=== PATIENT | female | born 1980 | race Caucasian/White ===

== ENCOUNTER 2017-04-20 11:39 | Emergency (ER) | payer OTHER ==
[2017-04-20 11:45] VITALS: TEMP 98.4; BMI 37.3
[2017-04-20 12:31] LABS: URINE APPEARANCE SLCLOUDY; URINE BILIRUBIN NEGATIVE (NEGATIVE); URINE COLOR YELLOW; URINE GLUCOSE (UA) NEGATIVE (NEGATIVE); URINE KETONE NEGATIVE (NEGATIVE); URINE LEUK ESTERASE NEGATIVE (NEGATIVE); URINE NITRITE NEGATIVE (NEGATIVE); URINE PROTEIN NEGATIVE (NEGATIVE); URINE UROBILINOGEN NEGATIVE E.U./dl (0.2-1.0)
[2017-04-20 12:39] LABS: URINE BLOOD 3+ (NEGATIVE)
[2017-04-20 12:40] LABS: URINE MUCUS MODERATE; URINE RBC 4 /hpf (0-3)
--- NOTE | 2017-04-20 12:41 | PDOC ---
History of Present Illness - General History Source: Patient, Family Exam Limitations: No Limitations - History of Present Illness Initial Comments: 04/20/17 13:19 The patient is a 36 year old female who is currently 16 weeks , with no significant past medical history, who presents to the emergency department with vaginal bleeding onset today. She states that the vaginal bleeding is in small amounts, which she first noticed in her underwear today. She notes that this is an IVF . She states that 4 weeks ago she had an ultrasound done at the IVF clinic which was normal. The patient denies chest pain, shortness of breath, headache and dizziness. Denies fever, chills, nausea, vomit, diarrhea and constipation. Denies dysuria, frequency and urgency Allergies: None Past surgical history: Cholecystectomy Social history: No alcohol, tobacco or drug use reported <Darren Diana - Last Filed: 04/20/17 13:18> - General History Source: Patient Exam Limitations: No Limitations <Ward Christian - Last Filed: 04/20/17 15:26> - General Chief Complaint: Vaginal Bleeding Stated Complaint: BLEEDING (16 WKS ) Time Seen by Provider: 04/20/17 11:54 Past History <Darren Diana - Last Filed: 04/20/17 13:18> - Surgical History Cholecystectomy: Yes - Psycho/Social/Smoking Cessation Hx Anxiety: No Suicidal Ideation: No Smoking Status: No Smoking History: Never smoked Number of Cigarettes Smoked Daily: 0 Information on smoking cessation initiated: No <Ward Christian - Last Filed: 04/20/17 15:26> - Past Medical History Allergies/Adverse Reactions: Allergies Allergy/AdvReac Type Severity Reaction Status Date / Time No Known Allergies Allergy Verified 04/20/17 11:44 Review of Systems - Review of Systems Able to Perform ROS?: Yes Comments:: 04/20/17 13:18 GENERAL/CONSTITUTIONAL: No fever or chills. No weakness. HEAD, EYES, EARS, NOSE AND THROAT: No change in vision. No ear pain or discharge. No sore throat. CARDIOVASCULAR: No chest pain or shortness of breath RESPIRATORY: No cough, wheezing, or hemoptysis. GASTROINTESTINAL: No nausea, vomiting, diarrhea or constipation. GENITOURINARY: (+) Vaginal bleeding. No dysuria, frequency, or change in urination. MUSCULOSKELETAL: No joint or muscle swelling or pain. No neck or back pain. SKIN: No rash NEUROLOGIC: No headache, vertigo, loss of consciousness, or change in strength/ sensation. ENDOCRINE: No increased thirst. No abnormal weight change HEMATOLOGIC/LYMPHATIC: No anemia, easy bleeding, or history of blood clots. ALLERGIC/IMMUNOLOGIC: No hives or skin allergy. <Darren Diana - Last Filed: 04/20/17 13:18> *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 - Vital Signs Last Vital Signs Temp Pulse Resp BP Pulse Ox 98.4 F 110 H 18 145/85 98 04/20/17 11:41 04/20/17 11:41 04/20/17 11:41 04/20/17 11:41 04/20/17 11:41 - 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 Comments: 04/20/17 13:19 GENERAL: Awake, alert, and fully oriented, in no acute distress HEAD: No signs of trauma, normocephalic, atraumatic EYES: PERRLA, EOMI, sclera anicteric, conjunctiva clear ENT: Auricles normal inspection, hearing grossly normal, nares patent, oropharynx clear without exudates. Moist mucosa NECK: Normal ROM, supple, no lymphadenopathy, JVD, or masses LUNGS: No distress, speaks full sentences, clear to auscultation bilaterally HEART: Regular rate and rhythm, normal S1 and S2, no murmurs, rubs or gallops, peripheral pulses normal and equal bilaterally. ABDOMEN: Soft, nontender, normoactive bowel sounds. No guarding, no rebound. No masses EXTREMITIES: Normal inspection, Normal range of motion, no edema. No clubbing or cyanosis. NEUROLOGICAL: Cranial nerves II through XII grossly intact. Normal speech, normal gait, no focal sensorimotor deficits SKIN: Warm, Dry, normal turgor, no rashes or lesions noted. PELVIC EXAM: (+)Small amount of blood in vault. No CMT or adnexal tenderness. Ox is closed. <Darren Diana - Last Filed: 04/20/17 13:18> - Vital Signs Last Vital Signs Temp Pulse Resp BP Pulse Ox 98.4 F 110 H 18 145/85 98 04/20/17 11:41 04/20/17 11:41 04/20/17 11:41 04/20/17 11:41 04/20/17 11:41 <Ward Christian - Last Filed: 04/20/17 15:26> ED Treatment Course - LABORATORY CBC & Chemistry Diagram: 04/20/17 12:26 04/20/17 12:26 - ADDITIONAL ORDERS Additional order review: Laboratory Results 04/20/17 12:25 Urine Color Yellow Urine Appearance Slcloudy Urine pH 6.0 Urine Protein Negative Urine Glucose (UA) Negative Urine Ketones Negative Urine Blood 3+ H Urine Nitrite Negative Urine Bilirubin Negative Urine Urobilinogen Negative Ur Leukocyte Esterase Negative Urine RBC 4 Urine WBC None Ur Epithelial Cells Moderate Urine Mucus Moderate 04/20/17 12:26 RBC 4.69 MCV 86.3 MCHC 33.0 RDW 14.7 MPV 7.2 L Neutrophils % 75.7 Lymphocytes % 14.3 Monocytes % 7.2 Eosinophils % 1.3 Basophils % 1.5 <Darren Diana - Last Filed: 04/20/17 13:18> - LABORATORY CBC & Chemistry Diagram: 04/20/17 12:26 04/20/17 12:26 <Ward Christian - Last Filed: 04/20/17 15:26> Medical Decision Making - Medical Decision Making 04/20/17 12:41 A portion of this note was documented by scribe services under my direction. I have reviewed the details of the note, within reason, and agree with the documentation with the following case summary and management plan written by me. Patient treated in the ED. Nursing notes are reviewed and incorporated into the medical decision-making. Vital signs reviewed. Peripheral IV access obtained by the nurse, laboratory studies are drawn and sent, reviewed and interpreted by myself. Vital Signs Temp Pulse Resp BP Pulse Ox 98.4 F 110 H 18 145/85 98 04/20/17 11:41 04/20/17 11:41 04/20/17 11:41 04/20/17 11:41 04/20/17 11:41 36-year-old female with no medical history, 004, presents with small amounts of vaginal bleeding today. Patient reports that she had a normal ultrasound performed 4 weeks ago at [place]. The patient states that this is an IVF . Noted this morning, that there are small amounts of blood in her underwear. She also reported some small amounts hematuria. Reports some lower abdominal discomfort but denies any nausea or vomiting. We'll need to evaluate the given the vaginal bleeding to r/o miscarriage.. We'll obtain a pelvic ultrasound, type and screen and labs. We'll give Tylenol, test urinalysis. Reassess. 04/20/17 15:24 Several live intrauterine with estimated gestational age of 14 weeks and 6 days. \ CBC, BMP 04/20/17 12:26 04/20/17 12:26 CMP Sodium 138 mmol/L (136-145) 04/20/17 12:26 Potassium 3.8 mmol/L (3.5-5.1) 04/20/17 12:26 Chloride 103 mmol/L (98-107) 04/20/17 12:26 Carbon Dioxide 21 mmol/L (21-32) 04/20/17 12:26 Anion Gap 14 (8-16) 04/20/17 12:26 BUN 8 mg/dL (7-18) 04/20/17 12:26 Creatinine 0.5 mg/dL (0.55-1.02) L 04/20/17 12:26 Creat Clearance w eGFR > 60 (>60) 04/20/17 12:26 Random Glucose 77 mg/dL (74-106) 04/20/17 12:26 Calcium 8.9 mg/dL (8.5-10.1) 04/20/17 12:26 Total Bilirubin 0.3 mg/dL (0.2-1.0) 04/20/17 12:26 AST 29 U/L (15-37) 04/20/17 12:26 ALT 47 U/L (12-78) 04/20/17 12:26 Alkaline Phosphatase 82 U/L (45-117) 04/20/17 12:26 Total Protein 7.0 g/dl (6.4-8.2) 04/20/17 12:26 Albumin 3.1 g/dl (3.4-5.0) L 04/20/17 12:26 Rh Positive. Patient given instructions regarding pelvic rest. Also for the patient that if the spotting worsens in the bleeding worsens that she needs return to the ED for repeat ultrasound. Patient ready made contact with her operations management trainee and will have follow-up Swapnil. Patient verbalizes understanding agrees with plan. Discharge diagnosis: Vaginal bleeding during I discussed the physical exam findings, ancillary test results and final diagnoses with the patient. I answered all of the patient's questions. The patient was satisfied with the care received and felt comfortable with the discharge plan and treatment plan. The patient will call their primary care physician within 24 hours to arrange follow-up and will return to the Emergency Department with any new, persistant or worsening symptoms. <Ward Christian - Last Filed: 04/20/17 15:26> *DC/Admit/Observation/Transfer - Attestations Scribe Attestion: 04/20/17 13:19 Documentation prepared by Darren Diana, acting as chief medical officer for Ward Christian MD <Darren Diana - Last Filed: 04/20/17 13:18> - Discharge Dispostion Admit: No <Ward Christian - Last Filed: 04/20/17 15:26> Diagnosis at time of Disposition: Vaginal bleeding before 22 weeks gestation - Discharge Dispostion Disposition: HOME Condition at time of disposition: Stable - Patient Instructions Printed Discharge Instructions: DI for Vaginal Bleeding During Additional Instructions: Please call your operations management trainee in follow-up. If you notice worsening vaginal bleeding or blood clots, please return to the ED for repeat ultrasound. Print Language: CROATIAN
[2017-04-20] MEDS ORDERED: ACETAMINOPHEN 325 MG TABLET (FP) PO ONE (12:45)
[2017-04-20 12:48] LABS: BASOPHIL 1.5 % (0-2.0); EOSINOPHIL 1.3 % (0-4.5); MCH 28.5 pg (25.7-33.7); MEAN CELL VOLUME 86.3 fl (80-96); MEAN PLT VOLUME 7.2 fl (7.5-11.1); NEUTROPHILS 75.7 % (42.8-82.8); PLATELET COUNT 269 K/MM3 (134-434); RDW 14.7 % (11.6-15.6); WHITE BLOOD COUNT 14.5 K/mm3 (4.0-10.0)
[2017-04-20] MEDS ORDERED: ACETAMINOPHEN 325 MG TABLET (FP) ONE (13:00)
[2017-04-20 13:14] LABS: ALBUMIN 3.1 g/dl (3.4-5.0); ALK PHOS 82 U/L (45-117); ANION GAP 14 (8-16); BILIRUBIN,TOTAL 0.3 mg/dL (0.2-1.0); CALCIUM 8.9 mg/dL (8.5-10.1); CO2 21 mmol/L (21-32); CREATININE 0.5 mg/dL (0.55-1.02); GLUCOSE,RANDOM 77 mg/dL (74-106); SGOT/AST 29 U/L (15-37); SGPT/ALT 47 U/L (12-78)
[2017-04-20 15:47] VITALS: BP 138/70; PULSE 84
== END 2017-04-20 15:47 | disposition home or self-care (01) ==
LOC: JER 11:39
DX: O46.92 Antepartum hemorrhage, unspecified, second trimester (principal); Z3A.16 16 weeks gestation of pregnancy
CPT/HCPCS: 36415; 76816-TC; 80053; 81003; 81015; 85025; 86850; 86900; 86901; 87086; 99282-25

== ENCOUNTER 2017-10-03 18:20 | Inpatient (IN) | payer OTHER ==
[2017-10-03] MEDS ORDERED: AMPICILLIN - 100 ML IVPB ONE (19:00)
[2017-10-03] MEDS ORDERED: DEXTROSE 5%-LACTATED RINGERS 1,000 ML IV SCH (19:15)
--- NOTE | 2017-10-03 19:24 | HP ---
Past Medical History - Primary Care Physician PCP:: Claudine Trent - Admission Chief Complaint: Active labor AMA CHronic HTN SROM History Source: Patient Limitations to Obtaining History: No Limitations - Past Surgical History Past Surgical History: Yes: None Hx Myomectomy: No Hx Transabdominal Cerclage: No - Smoking History Smoking history: Never smoked Aproximately how many cigarettes per day: 0 Home Medications - Allergies Allergies/Adverse Reactions: Allergies Allergy/AdvReac Type Severity Reaction Status Date / Time No Known Allergies Allergy Verified 09/30/17 22:06 - Home Medications Home Medications: Ambulatory Orders Vit Calc,Iron,Folic [ Vitamins] 1 each PO DAILY 09/01/17 Labetalol HCl 100 mg PO BID 09/30/17 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 - Maternity Constitutional: Yes: Well Nourished, No Distress, Obese Cardiovascular: Yes: WNL Lungs: Clear to auscultation Breast(s): Yes: WNL - Abdominal Exam/OB Fundal Height: 39 Number of Fetuses: Single Presentation: Vertex Contractions: Yes Regularity: Regular Intensity: Moderate Monitor Mode: External Heart Rate (range): 150 Category: I Decelerations: Early - Vaginal Exam/OB Dilatation (cm): FD Amniotic Membrane Status: Ruptured - 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 Musculoskeletal: Yes: WNL Extremities: Yes: WNL Edema: No Hemorrhage Risk Assessment - Risk Factors Risk Score: 0 Risk Level: Low Risk Problem List - Problems (1) Normal vaginal delivery Code(s): O80 - ENCOUNTER FOR FULL-TERM UNCOMPLICATED DELIVERY Assessment/Plan CHronic Hypertension Active labor SROM Plan admit po Labetalol 200 stat anticipate vaginal delivery
[2017-10-03] MEDS ORDERED: LABETALOL HCL 200 MG TABLET (FP) PO ONE (19:30)
[2017-10-03 19:55] VITALS: BMI 41.7
[2017-10-03 20:39] LABS: BASOPHIL 0.4 % (0-2.0); EOSINOPHIL 0.5 % (0-4.5); MCH 26.2 pg (25.7-33.7); MCHC 33.3 g/dl (32.0-36.0); MEAN CELL VOLUME 78.7 fl (80-96); MEAN PLT VOLUME 8.5 fl (7.5-11.1); NEUTROPHILS 79.5 % (42.8-82.8); PLATELET COUNT 236 K/MM3 (134-434); RDW 15.5 % (11.6-15.6); WHITE BLOOD COUNT 14.9 K/mm3 (4.0-10.0)
[2017-10-03] MEDS ORDERED: METHYLERGONOVINE MALEATE 0.2 MG/1 ML AMP IM PRN (20:44)
[2017-10-03] MEDS ORDERED: BENZOCAINE 20% 57 GM BOTTLE TP PRN (20:44)
[2017-10-03] MEDS ORDERED: BISACODYL 10 MG SUPP.RECT PR PRN (20:44)
[2017-10-03] MEDS ORDERED: BENZOCAINE 28 GM HEMORRHOIDAL OINTMENT PR PRN (20:44)
[2017-10-03] MEDS ORDERED: WITCH HAZEL 50% (TUCKS) 40 PAD/JAR PAD TP PRN (20:44)
--- NOTE | 2017-10-03 20:44 | PN ---
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
[2017-10-03 20:50] LABS: INR 0.88 (0.82-1.09); PROTHROMBIN TIME (PATIENT) 9.9 SEC (9.98-11.88)
[2017-10-03 20:53] LABS: ACTIVATED PTT 22.8 SECONDS (26.9-34.4)
[2017-10-03] MEDS ORDERED: OXYTOCIN IV ONE (21:00)
[2017-10-03] MEDS ORDERED: LABETALOL HCL 200 MG TABLET (FP) PO SCH (21:00)
[2017-10-03] MEDS ORDERED: OXYTOCIN 20 UNITS in 0.9% NS 1,000 ML IV SCH (21:00)
[2017-10-03] MEDS ORDERED: NS 0.9% IV ONE (21:00)
[2017-10-03 21:19] LABS: ANION GAP 9 (8-16); CALCIUM 8.3 mg/dL (8.5-10.1); CO2 20 mmol/L (21-32); CREATININE 0.7 mg/dL (0.55-1.02); GLUCOSE,RANDOM 104 mg/dL (74-106)
[2017-10-03] MEDS: IBUPROFEN 600 MG TABLET (FP) PO PRN (21:45)
[2017-10-03] MEDS: ACETAMINOPHEN 325 MG TABLET (FP) PO PRN (21:45)
[2017-10-03] MEDS: LABETALOL HCL 200 MG TABLET (FP) PO SCH (22:00)
[2017-10-03 22:05] LABS: HIV 1 & 2 AB NEGATIVE; HIV 1 AGp24 NEGATIVE
[2017-10-03] MEDS ORDERED: CARBOPROST TROMETHAMINE 250 MCG/ML AMPUL IM ONE (22:30)
[2017-10-04] MEDS: LABETALOL HCL 200 MG TABLET (FP) PO SCH (08:10)
[2017-10-04 08:36] LABS: BASOPHIL 0.2 % (0-2.0); EOSINOPHIL 0.2 % (0-4.5); MCH 25.8 pg (25.7-33.7); MCHC 32.8 g/dl (32.0-36.0); MEAN CELL VOLUME 78.6 fl (80-96); MEAN PLT VOLUME 8.3 fl (7.5-11.1); NEUTROPHILS 82.2 % (42.8-82.8); PLATELET COUNT 215 K/MM3 (134-434); RDW 15.5 % (11.6-15.6); WHITE BLOOD COUNT 20.4 K/mm3 (4.0-10.0)
[2017-10-04] MEDS: ACETAMINOPHEN 325 MG TABLET (FP) PO PRN ×2 (09:03→16:58)
[2017-10-04] MEDS: IBUPROFEN 600 MG TABLET (FP) PO PRN (09:05)
[2017-10-04] MEDS ORDERED: LABETALOL HCL 100 MG TABLET (FP) PO SCH (10:00)
[2017-10-04] MEDS ORDERED: DIPHTH,PERTUSS(ACELL),TET 0.5 ML DISP.SYRIN IM ONE (10:00)
[2017-10-04] MEDS ORDERED: FLU VACC QS2017-18 36MOS UP/PF 60 MCG/0.5 ML SYRINGE IM ONE (10:00)
[2017-10-04 14:01] LABS: URINE APPEARANCE SLCLOUDY; URINE BILIRUBIN NEGATIVE (NEGATIVE); URINE BLOOD 3+ (NEGATIVE); URINE COLOR RED; URINE GLUCOSE (UA) NEGATIVE (NEGATIVE); URINE KETONE NEGATIVE (NEGATIVE); URINE NITRITE NEGATIVE (NEGATIVE); URINE UROBILINOGEN NEGATIVE mg/dL (0.2-1.0)
[2017-10-04 14:04] LABS: ALBUMIN 2.1 g/dl (3.4-5.0); ALK PHOS 189 U/L (45-117); ANION GAP 10 (8-16); BILIRUBIN,TOTAL 0.3 mg/dL (0.2-1.0); CALCIUM 8.2 mg/dL (8.5-10.1); CO2 20 mmol/L (21-32); CREATININE 0.7 mg/dL (0.55-1.02); GLUCOSE,RANDOM 136 mg/dL (74-106); SGOT/AST 19 U/L (15-37); SGPT/ALT 16 U/L (12-78); TOT PROT 5.3 g/dl (6.4-8.2)
[2017-10-04 14:13] LABS: URINE PROTEIN 2+ (NEGATIVE)
[2017-10-04 14:14] LABS: URINE RBC 372 /hpf (0-3); URINE WBC 85 /hpf (3-5)
--- NOTE | 2017-10-04 14:56 | PN ---
Post Note - Post Date of Delivery: 10/03/17 Post Day: 1 Vital Signs: Vital Signs - 24 hr 10/03/17 10/03/17 10/03/17 19:35 19:41 20:05 Temperature 98.2 F 98.4 F Pulse Rate 81 79 81 Respiratory 20 20 20 Rate Blood Pressure 166/113 178/95 166/91 O2 Sat by Pulse Oximetry (%) 10/03/17 10/03/17 10/03/17 20:30 20:55 21:00 Temperature 98.8 F 98.8 F Pulse Rate 89 89 86 Respiratory 18 20 18 Rate Blood Pressure 164/89 148/77 148/77 O2 Sat by Pulse 100 Oximetry (%) 10/03/17 10/03/17 10/03/17 21:10 21:25 21:40 Temperature Pulse Rate 91 H 94 H 100 H Respiratory 18 18 20 Rate Blood Pressure 142/88 154/98 144/84 O2 Sat by Pulse 100 100 100 Oximetry (%) 10/03/17 10/03/17 10/03/17 21:55 22:30 22:45 Temperature Pulse Rate 96 H 98 H 96 H Respiratory 20 18 18 Rate Blood Pressure 139/81 139/79 138/79 O2 Sat by Pulse 100 100 100 Oximetry (%) 10/03/17 10/03/17 10/03/17 23:00 23:15 23:30 Temperature Pulse Rate 90 92 H 93 H Respiratory 20 18 18 Rate Blood Pressure 126/77 131/84 124/86 O2 Sat by Pulse 100 100 100 Oximetry (%) 10/03/17 10/04/17 10/04/17 23:55 03:52 09:43 Temperature 98.4 F 98.5 F 98.8 F Pulse Rate 113 H 91 H 92 H Respiratory 18 18 18 Rate Blood Pressure 135/82 136/72 139/86 O2 Sat by Pulse Oximetry (%) 10/04/17 10/04/17 10:30 13:33 Temperature 98.2 F 98.2 F Pulse Rate 94 H 104 H Respiratory 19 18 Rate Blood Pressure 158/97 137/80 O2 Sat by Pulse Oximetry (%) Labs: Laboratory Results - last 24 hr 10/03/17 10/03/17 10/03/17 20:30 20:30 20:30 WBC 14.9 H D RBC 4.19 Hgb 11.0 Hct 33.0 MCV 78.7 L MCH 26.2 MCHC 33.3 RDW 15.5 Plt Count 236 MPV 8.5 Neutrophils % 79.5 Lymphocytes % 11.0 D Monocytes % 8.6 Eosinophils % 0.5 Basophils % 0.4 PT with INR 9.90 L INR 0.88 PTT (Actin FS) 22.8 L Sodium 137 Potassium 4.0 Chloride 108 H Carbon Dioxide 20 L Anion Gap 9 BUN 14 D Creatinine 0.7 D Creat Clearance w eGFR Random Glucose 104 D Calcium 8.3 L Total Bilirubin AST ALT Alkaline Phosphatase Total Protein Albumin Urine Color Urine Appearance Urine pH Ur Specific Portal Urine Protein Urine Glucose (UA) Urine Ketones Urine Blood Urine Nitrite Urine Bilirubin Urine Urobilinogen Urine RBC Urine WBC Ur Epithelial Cells U Random Total Protein Urine Creatinine HIV 1&2 Antibody Screen HIV P24 Antigen Blood Type Antibody Screen 10/03/17 10/03/17 10/03/17 20:30 20:30 20:30 WBC RBC Hgb Hct MCV MCH MCHC RDW Plt Count MPV Neutrophils % Lymphocytes % Monocytes % Eosinophils % Basophils % PT with INR INR PTT (Actin FS) Sodium Potassium Chloride Carbon Dioxide Anion Gap BUN Creatinine Creat Clearance w eGFR Random Glucose Calcium Total Bilirubin AST ALT Alkaline Phosphatase Total Protein Albumin Urine Color Urine Appearance Urine pH Ur Specific Portal Urine Protein Urine Glucose (UA) Urine Ketones Urine Blood Urine Nitrite Urine Bilirubin Urine Urobilinogen Urine RBC Urine WBC Ur Epithelial Cells U Random Total Protein Urine Creatinine HIV 1&2 Antibody Screen Negative HIV P24 Antigen Negative Blood Type O POSITIVE Cancelled Antibody Screen Negative 10/04/17 10/04/17 10/04/17 07:35 13:00 13:00 WBC 20.4 H D RBC 3.35 L D Hgb 8.6 L D Hct 26.3 L D MCV 78.6 L MCH 25.8 MCHC 32.8 RDW 15.5 Plt Count 215 MPV 8.3 Neutrophils % 82.2 Lymphocytes % 10.1 Monocytes % 7.3 Eosinophils % 0.2 Basophils % 0.2 PT with INR INR PTT (Actin FS) Sodium Potassium Chloride Carbon Dioxide Anion Gap BUN Creatinine Creat Clearance w eGFR Random Glucose Calcium Total Bilirubin AST ALT Alkaline Phosphatase Total Protein Albumin Urine Color Red Urine Appearance Slcloudy Urine pH 6.0 Ur Specific Portal 1.005 Urine Protein 2+ H Urine Glucose (UA) Negative Urine Ketones Negative Urine Blood 3+ H Urine Nitrite Negative Urine Bilirubin Negative Urine Urobilinogen Negative Urine RBC 372 Urine WBC 85 Ur Epithelial Cells Rare U Random Total Protein Urine Creatinine 37.6 HIV 1&2 Antibody Screen HIV P24 Antigen Blood Type Antibody Screen 10/04/17 10/04/17 13:00 13:05 WBC RBC Hgb Hct MCV MCH MCHC RDW Plt Count MPV Neutrophils % Lymphocytes % Monocytes % Eosinophils % Basophils % PT with INR INR PTT (Actin FS) Sodium 137 Potassium 4.2 Chloride 107 Carbon Dioxide 20 L Anion Gap 10 BUN 10 D Creatinine 0.7 Creat Clearance w eGFR > 60 Random Glucose 136 H D Calcium 8.2 L Total Bilirubin 0.3 AST 19 ALT 16 Alkaline Phosphatase 189 H D Total Protein 5.3 L D Albumin 2.1 L D Urine Color Urine Appearance Urine pH Ur Specific Portal Urine Protein Urine Glucose (UA) Urine Ketones Urine Blood Urine Nitrite Urine Bilirubin Urine Urobilinogen Urine RBC Urine WBC Ur Epithelial Cells U Random Total Protein 79 H Urine Creatinine HIV 1&2 Antibody Screen HIV P24 Antigen Blood Type Antibody Screen - Subjective Subjective: No Complaints - Objective Afebrile: Yes Breast: Not engorged Abdomen: Soft, Non-tender Uterus: Fundus firm Vagina: Scant lochia Extremities: Non-tender - Assessment/Plan (1) Normal vaginal delivery Assessment: S/P Normal , Other (CHronic hypertension) Plan: Routine Care, Other (renal consult continue Labetalol 20 tid)
--- NOTE | 2017-10-04 15:00 | DS ---
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-METAL BALER Vital Signs: Vital Signs Temperature 98.2 F 10/04/17 13:33 Pulse Rate 104 H 10/04/17 13:33 Respiratory Rate 18 10/04/17 13:33 Blood Pressure 137/80 10/04/17 13:33 O2 Sat by Pulse Oximetry (%) 100 10/03/17 23:30 Constitutional: Yes: Well Nourished, No Distress ....Post : Yes: Uterus firm, Uterus non-tender Breast(s): Yes: WNL Musculoskeletal: Yes: WNL Extremities: Yes: WNL Labs: CBC, BMP 10/04/17 07:35 10/04/17 13:05 Delivery - Delivery Vaginal Delivery: No Problems Type of Anesthesia: None Episiotomy/Laceration: None EBL (cc): 250 Delivery, Single - Stages of Labor Date 1st Stage Initiatied: 10/03/17 Time 1st Stage Initiated: 18:00 Date 2nd Stage Initiated: 10/03/17 Time 2nd Stage Initiated: 20:25 Date of Delivery: 10/03/17 Time of Delivery: 20:35 Time Placenta Delivered: 20:40 Placenta: Yes: Spontaneous - Condition of Operations Support 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/Forging 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 You may walk unlimited maría elena of and climb stairs. You may resume driving the car when you feel safe and comfortable behind the wheel. No sexual activity as instructed. Wound care If you have a bandage, leave it on, and keep dry for 48-72 hours. After that time discard the outer bandage. If they are tapes on the skin under the out of bandage leave them in place. They will peel off in the next 7 to 10 days. Do Not Peel them off. You may shower the day after surgery. If there are tapes present on the skin, you may shower over them. Diet There are no dietary restrictions. Eat healthy, high-fiber foods. Drink 6 to 8 glasses of liquid each day. This will assist in keeping your bowels are regular. Pain management You may take Tylenol or acetaminophen or Ibuprofen (for example, Motrin, Advil etc.) from my pain prescription medication is ordered should be taken as prescribed for moderate to severe pain. Call MD for any of the following: Severe pain not relieved by medication Fever of 101 or higher Excessive bleeding or drainage on dressing Inability to urinate Call Dr. Trent and make appt. to be seen in one week. Call Dr. Ruiz and christiana appt. to be seen in one week. Referrals: Claudine Trent MD [Staff Physician] - Marcell Ruiz MD [Staff Physician] - Disposition: HOME - Home Medications Comprehensive Discharge Medication List: Ambulatory Orders Vit Calc,Iron,Folic [ Vitamins] 1 each PO DAILY 09/01/17 Labetalol HCl 100 mg PO BID 09/30/17
[2017-10-04] MEDS: LABETALOL HCL 200 MG TABLET (FP) PO PRN (16:58)
--- NOTE | 2017-10-04 17:05 | CON.NEP ---
Consult Consult Specialty:: Nephrology Referred by:: Dr. Musa Reason for Consultation:: Hypertension - History of Present Illness Chief Complaint: High BP s/p pregnacy History of Present Illness: This is a 36 year old woman no significant PMhx who presented in active labor now s/p vaginal delivery with hypertension Pt reports that she was started on Labetalol 100mg BID about 1 month ago when it was noted that her BP was elevated. Pt denies any LIZARRAGA, vision changes, N/V, Abd pain. Pt s/p Vaginal delivery. Pt feels well. BP remains high. Pt gained ~30 lbs during . - History Source History Provided By: Patient Limitations to Obtaining History: No Limitations - Past Surgical History Past Surgical History: Yes: None - Alcohol/Substance Use Hx Alcohol Use: No - Smoking History Smoking history: Never smoked Have you smoked in the past 12 months: No Aproximately how many cigarettes per day: 0 Home Medications - Allergies Allergies/Adverse Reactions: Allergies Allergy/AdvReac Type Severity Reaction Status Date / Time No Known Allergies Allergy Verified 09/30/17 22:06 - Home Medications Home Medications: Ambulatory Orders Vit Calc,Iron,Folic [ Vitamins] 1 each PO DAILY 09/01/17 Labetalol HCl 100 mg PO BID 09/30/17 Family Disease History - Family Disease History Family Disease History: Other: Mother (Hypertension ) Review of Systems - Review of Systems Constitutional: reports: No Symptoms Eyes: reports: No Symptoms HENT: reports: No Symptoms Neck: reports: No Symptoms Cardiovascular: reports: No Symptoms Respiratory: reports: No Symptoms Gastrointestinal: reports: No Symptoms Genitourinary: reports: No Symptoms Musculoskeletal: reports: No Symptoms Integumentary: reports: No Symptoms Neurological: reports: No Symptoms Nephrology Consult - Height Height: 5 ft 2 in - Weight Weight: 228 lb - BMI Body Mass Index (BMI): 41.7 - Lab Results CBC,BMP: CBC, BMP 10/04/17 07:35 10/04/17 13:05 Anion Gap: Anion Gap Anion Gap 10 (8-16) 10/04/17 13:05 - 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ination Vital Signs: Vital Signs Temperature 98.2 F 10/04/17 13:33 Pulse Rate 104 H 10/04/17 13:33 Respiratory Rate 18 10/04/17 13:33 Blood Pressure 137/80 10/04/17 13:33 O2 Sat by Pulse Oximetry (%) 100 10/03/17 23:30 Constitutional: Yes: Well Nourished, No Distress, Calm HENT: Yes: Atraumatic Neck: Yes: Supple Cardiovascular: Yes: Regular Rate and Rhythm Respiratory: Yes: Regular, CTA Bilaterally Gastrointestinal: Yes: Normal Bowel Sounds, Soft, Abdomen, Obese Renal/: No: Anuria Edema: No Problem List - Problems (1) Preeclampsia Code(s): O14.90 - UNSPECIFIED PRE-ECLAMPSIA, UNSPECIFIED TRIMESTER (2) hypertension Code(s): O16.5 - UNSPECIFIED MATERNAL HYPERTENSION, COMP THE PUERPERIUM (3) Normal vaginal delivery Code(s): O80 - ENCOUNTER FOR FULL-TERM UNCOMPLICATED DELIVERY Assessment/Plan 36 year old woman no significant PMhx who presented in active labor now s/p vaginal delivery with hypertension # Hypertension secondary to Preeclampisa Pt developed hypertension during her 3rd trimester and has UPCR ~2 no LFT abnormalities, low plts to signify HELLP syndrome Would recommend PRN Labetalol for SBP > 140 and DNP > 90 Low salt diet Avoidance of NSIADs Adequate pain control Closely monitor BP next 24 hours if BP reasonably controlled can be discharged will determine need for mediation on discharge based on BP trend Thank you Will follow Marcell Ruiz DO
[2017-10-04 19:31] LABS: URINE LEUK ESTERASE 1+ (NEGATIVE)
[2017-10-05] MEDS: LABETALOL HCL 200 MG TABLET (FP) PO PRN (04:52)
--- NOTE | 2017-10-05 06:56 | PN ---
Post Progress Note - Subjective Subjective: Pt seen/evaluated and doing well. Pain controlled. Tolerating regular diet. VB minimal/moderate but decreasing. Ambulating, voiding, passing flatus. Denies LIZARRAGA/RUQ pain or changes/spots in vision. Denies CP/SOB/F/C/LIZARRAGA. Type of Delivery: Vital Signs: Vital Signs Temperature 98.7 F 10/05/17 04:00 Pulse Rate 97 H 10/05/17 04:00 Respiratory Rate 20 10/05/17 04:00 Blood Pressure 143/78 10/05/17 04:00 O2 Sat by Pulse Oximetry (%) 100 10/03/17 23:30 Uterus: Yes: Fundus Firm Abdomen/GI: Yes: Abdomen soft, Tolerating PO. No: Tender, Passing flatus Lochia: Yes: Rubra Lochia, amount: Small Extremities: Yes: Calves non-tender, Edema (trace b/l Edema in UE and LE b/l) Perineum: Yes: Intact Activity: Ambulating - Labs Labs: CBC WBC 20.4 K/mm3 (4.0-10.0) H D 10/04/17 07:35 RBC 3.35 M/mm3 (3.60-5.2) L D 10/04/17 07:35 Hgb 8.6 GM/dL (10.7-15.3) L D 10/04/17 07:35 Hct 26.3 % (32.4-45.2) L D 10/04/17 07:35 MCV 78.6 fl (80-96) L 10/04/17 07:35 MCH 25.8 pg (25.7-33.7) 10/04/17 07:35 MCHC 32.8 g/dl (32.0-36.0) 10/04/17 07:35 RDW 15.5 % (11.6-15.6) 10/04/17 07:35 Plt Count 215 K/MM3 (134-434) 10/04/17 07:35 MPV 8.3 fl (7.5-11.1) 10/04/17 07:35 Neutrophils % 82.2 % (42.8-82.8) 10/04/17 07:35 Lymphocytes % 10.1 % (8-40) 10/04/17 07:35 Monocytes % 7.3 % (3.8-10.2) 10/04/17 07:35 Eosinophils % 0.2 % (0-4.5) 10/04/17 07:35 Basophils % 0.2 % (0-2.0) 10/04/17 07:35 Problem List - Problems (1) hypertension Code(s): O16.5 - UNSPECIFIED MATERNAL HYPERTENSION, COMP THE PUERPERIUM (2) Normal vaginal delivery Code(s): O80 - ENCOUNTER FOR FULL-TERM UNCOMPLICATED DELIVERY Assessment/Plan 36 y/o post day 1 s/p normal with gestational HTN - AFVSS - BPs in normal to mild range, s/p nephrology consultation, taking labetalol PO. BPs stable, ok for discharge home today with follow up in office. - regular diet, PO pain meds, encourage ambulation
[2017-10-05 08:46] VITALS: BP 129/73; PULSE 90; TEMP 98.9
--- NOTE | 2017-10-05 11:38 | PN ---
Progress Note (short form) - Note Progress Note: Renal Follow up for hypertension Pt seen and examined at the bedside awake and alert no sob, chest pain, abd pain, N/V/D BP ok overnight, recieved one dose of Labetalol this am BP trend: Selected Entries 10/04/17 10/04/17 10/04/17 03:52 09:43 10:30 Blood Pressure 136/72 139/86 158/97 10/04/17 10/04/17 10/04/17 13:33 16:55 20:00 Blood Pressure 137/80 138/92 138/77 10/05/17 10/05/17 10/05/17 00:00 04:00 07:45 Blood Pressure 138/80 143/78 129/73 Vital Signs Temperature 98.9 F 10/05/17 07:45 Pulse Rate 90 10/05/17 07:45 Respiratory Rate 20 10/05/17 07:45 Blood Pressure 129/73 10/05/17 07:45 O2 Sat by Pulse Oximetry (%) 100 10/03/17 23:30 Intake & Output 10/02/17 10/03/17 10/04/17 10/05/17 23:59 23:59 23:59 23:59 Intake Total 1600 Balance 1600 Weight 228 lb 228 lb NAD awake and alert RRR Trace LE edema CBC, BMP 10/04/17 07:35 10/04/17 13:05 Current Medications Acetaminophen (Tylenol -) 650 mg PO Q4H PRN PRN Reason: FEVER OR PAIN Last Admin: 10/04/17 16:58 Dose: 650 mg Benzocaine (Americaine Ointment -) 1 applic NC PRN PRN PRN Reason: PAIN Benzocaine (Americaine 20% [place] -) 1 spray TP PRN PRN PRN Reason: PAIN Bisacodyl (Dulcolax Suppository -) 10 mg NC PRN PRN PRN Reason: CONSTIPATION Dextrose/Lactated Ringer's (D5-Lr -) 1,000 mls @ 125 mls/hr IV ASDIR [facility] Last Admin: 10/03/17 19:00 Dose: 125 mls/hr Oxytocin/Sodium Chloride (Normal Saline+20 Units Oxytocin -) 1,000 mls @ 125 mls/hr IV ASDIR [facility] Last Admin: 10/03/17 21:40 Dose: 125 mls/hr Ibuprofen (Motrin -) 600 mg PO Q4H PRN PRN Reason: PAIN Last Admin: 10/04/17 09:05 Dose: 600 mg Labetalol HCl (Normodyne -) 200 mg PO Q6H PRN PRN Reason: HYPERTENSION Last Admin: 10/05/17 04:52 Dose: 200 mg Methylergonovine Maleate (Methergine Injection -) 0.2 mg IM Q4H PRN PRN Reason: EXCESSIVE BLEEDING Witch Amanda/Glycerin (Tucks Pads -) 1 pad TP PRN PRN PRN Reason: PAIN 36 year old woman no significant PMhx who presented in active labor now s/p vaginal delivery with hypertension # Hypertension secondary to Preeclampisa BP has been acceptable over the past 24 hours pt only met criteria for labetalol once this am would recommend d/c off medications and BP monitoring twice daily pt to follow up in our office next week for BP check This was discussed with the patient who understands the instructions and the RN Thank you Will follow Marcell Ruiz DO Problem List - Problems (1) Preeclampsia Code(s): O14.90 - UNSPECIFIED PRE-ECLAMPSIA, UNSPECIFIED TRIMESTER (2) hypertension Code(s): O16.5 - UNSPECIFIED MATERNAL HYPERTENSION, COMP THE PUERPERIUM (3) Normal vaginal delivery Code(s): O80 - ENCOUNTER FOR FULL-TERM UNCOMPLICATED DELIVERY
== END 2017-10-05 13:00 | disposition home or self-care (01) | DRG 560 ==
LOC: JLDR 18:20 → J3W 23:55
PROVIDERS: ADMIT Obstetrics & Gynecology; ATTEND Obstetrics & Gynecology
PROC: 10E0XZZ Delivery of Products of Conception, External Approach (ICD-10-PCS; principal; 2017-10-03)
DX: O13.4 Gestational [pregnancy-induced] hypertension without significant proteinuria, complicating childbirth (principal); E66.01 Morbid (severe) obesity due to excess calories; O14.95 Unspecified pre-eclampsia, complicating the puerperium; O99.214 Obesity complicating childbirth; Z68.41 Body mass index [BMI] 40.0-44.9, adult; Z3A.38 38 weeks gestation of pregnancy; Z37.0 Single live birth
CPT/HCPCS: 36415; 59409; 71010-TC; 80048; 80053; 81003; 81015; 82570; 84156; 85025; 85610; 85730; 86593; 86850; 86900; 86901; 87389; 90686; 90715; G0008